=== PATIENT | male | born 1975 | race Two or more races ===

== ENCOUNTER 2023-07-25 11:16 | Outpatient (REF) | payer MEDICAID, OTHER, SELFPAY ==
--- NOTE | ~2023-07-25 | XR_ITS ---
EXAMINATION: XR HAND, RIGHT CLINICAL INFORMATION: Numbness and tingling; pain and cramping; tenosynovitis. COMPARISON: None available. TECHNIQUE: PA, lateral, and oblique views of the right hand. FINDINGS: The bones and soft tissues are normal. No fracture. Alignment is anatomic. Joint spaces are maintained. No erosions or soft tissue calcifications. XR/XR hand RT min 3V IMPRESSION: Normal right hand.
== END 2023-07-25 11:17 | disposition home or self-care (01) ==
LOC: HO.HHCX 11:16
PROVIDERS: Visit Provider Internal Medicine
DX: M65.9 Synovitis and tenosynovitis, unspecified (principal)
CPT/HCPCS: 73130

== ENCOUNTER 2023-09-21 10:16 | Outpatient (REF) | payer MEDICAID, OTHER, SELFPAY ==
[2023-09-21 12:15] LABS: HIV AB/AG Nonreactive (Nonreactive); HIV Num 1 0.04 S/CO (0.00-0.99); ~HepC Num1 0.24 S/CO (0.00-0.79); ~Hepatitis C Antibody Nonreactive (Nonreactive)
[2023-09-21 12:58] LABS: CT PCR NOT DETECTED (Not Detect.); NG PCR NOT DETECTED (Not Detect.)
[2023-09-21 14:10] LABS: Alanine Aminotransferase 53 U/L (0-40); Albumin Level 4.5 g/dL (3.5-5.0); Alkaline Phosphatase 68 U/L (39-117); Anion Gap 8 (12-20); Aspartate Amino Transferase 32 U/L (5-37); Bilirubin Total 1.1 mg/dL (0.0-1.0); Blood Urea Nitrogen 16 mg/dL (9-16); Calcium 9.7 mg/dL (8.4-10.2); Carbon Dioxide 30 mmol/L (22-29); Chloride 107 mmol/L (96-108); Cholesterol 271 mg/dL (<200); Estimated Glomerular Filt Rate > 60; Glucose Random 87 mg/dL (60-115); HDL Cholesterol 47 mg/dL (>40); LDL Cholesterol Calculated 187 mg/dL (<100); Potassium 4.7 mmol/L (3.3-5.1); Sodium 140 mmol/L (135-145); Triglycerides 187 mg/dL (<150)
[2023-09-22 13:38] LABS: RPR Rapid Plasma Reagin NON-REACTIVE (NON-REACTIVE)
== END 2023-09-21 10:17 | disposition home or self-care (01) ==
LOC: HO.HHCL 10:16
PROVIDERS: Visit Provider Nurse Practitioner Family
DX: Z00.00 Encounter for general adult medical examination without abnormal findings (principal); Z11.4 Encounter for screening for human immunodeficiency virus [HIV]; Z11.3 Encounter for screening for infections with a predominantly sexual mode of transmission
CPT/HCPCS: 0353U; 36415; 80053; 80061; 86592; 86803; 87389

== ENCOUNTER 2024-02-08 11:57 | Outpatient (REF) | payer MEDICAID, OTHER, SELFPAY ==
[2024-02-08 14:11] LABS: Alanine Aminotransferase 36 U/L (0-40); Albumin Level 4.5 g/dL (3.5-5.0); Alkaline Phosphatase 65 U/L (39-117); Anion Gap 11 (12-20); Aspartate Amino Transferase 22 U/L (5-37); Bilirubin Direct 0.2 mg/dL (0.0-0.5); Bilirubin Total 0.9 mg/dL (0.0-1.0); Blood Urea Nitrogen 15 mg/dL (9-16); Calcium 9.8 mg/dL (8.4-10.2); Carbon Dioxide 28 mmol/L (22-29); Chloride 105 mmol/L (96-108); Estimated Glomerular Filt Rate > 60; Glucose Random 85 mg/dL (60-115); Potassium 4.6 mmol/L (3.3-5.1); Sodium 139 mmol/L (135-145); Total Protein 7.9 g/dL (6.5-8.0)
== END 2024-02-08 11:58 | disposition home or self-care (01) ==
LOC: HO.HHCL 11:57
PROVIDERS: Visit Provider Nurse Practitioner Family
DX: I10 Essential (primary) hypertension (principal)
CPT/HCPCS: 36415; 80048; 80076

== ENCOUNTER 2024-11-05 10:17 | Outpatient (REF) | payer MEDICAID, OTHER, SELFPAY ==
--- OUTSIDE RECORDS SUMMARY | 2024-11-05 10:47 | XMS_ITS | Encounter Summary ---
Author Organization [employer] [facility] Address [address] [facility] [address] [place] [address] Care Team Providers Care Coach Mechanic Name Role Phone Vivian Castorena NP Primary Care Provider [phone] Reason for Visit * Reason Comments Med Change Request Encounter Details Date Type Department Care Team ([facility] st Contact Info) Description 09/21/2023 Refill [facility] [address] [place], [place] [phone] Vivian Castorena NP [address] [place], [place] [phone] Hypertension, unspecified type Social History Tobacco Use Types Packs/Day Years Used Date Smoking Tobacco: Never Passive Smoke Exposure: Never Smokeless Tobacco: Never Alcohol Use Standard Drinks/Week Comments Yes 1 (1 standard drink = 0.6 oz pur e alcohol) Depression Answer Date Recorded Patient Health Questionnaire-9 Score 0 09/21/2023 Patient Health Questionnaire-9 Score 0 09/21/2023 Last PHQ-9: Questionnaire Data Not on file 0 09/21/2023 Housing Stability Answer Date Recorded What is your housing situation today? I have giovany grey 09/14/[address] you li ve. Do you have problems with any of the following? None of the above 09/14/2023 Food Insecurity Answer Date Recorded Within the past 12 months, y ou worried that your food would run out before you got money to buy more: Never True 09/21/2023 Within the past 12 months,th e food you bought just didn't last and you didn't have enough money to get more: Never True Transportation Answer Date Recorded In the past 12 months, has l ack of transportation kept you from medical appts, meetings, work or from getting things needed for daily living? No 09/14/2023 Utilities Answer Date Recorded In the past 12 months, has t he electric, gas, oil or water company threatened to shut off services in your home? No 09/14/2023 Depression Answer Date Recorded Patient Health Questionnaire-2 Score 0 09/21/2023 Sex and Gender Information Value Date Recorded Sex Assigned at Male 02/02/2023 11:22 AM EDT Legal Sex Male 11:18 AM EDT Gender Identity Male 02/02/2023 11:22 AM EDT Sexual Orientation Straight 02/02/2023 11 :22 AM EDT Occupation Industry Job Start Date Job End Date construction Not on file Not on file Not on file documented as of this encounter Miscellaneous Notes * Telephone Encounter - Kyra Morales - 09/23/2023 8:13 AM EDT DME Rx generated for BPM kit and placed on PCP desk for signature. Once signed will fax to [facility] and scan into chart under media. documented in this encounter Plan of Treatment Not on file documented as of this encounter Visit Diagnoses Diagnosis Hypertension, unspecified type documented in this encounter Additional Health Concerns Assessment Noted Time PHQ-9 Depression Total Score: 0 09/21/19 9:07 AM EDT documented as of this encounter Care Teams Coach Mechanic Relationship Specialty Start Date End Date Vivian Castorena NP [address] [place] [address] PCP - General Family Medicine 09/21/23 documented as of this encounter
--- OUTSIDE RECORDS SUMMARY | 2024-11-05 10:47 | XMS_ITS | Clinical Summary ---
Author Organization [facility] Address [address] [place] [address] 7 [place] [address] Care Team Providers Care Water Proofer Name Role Phone Vivian Castorena SANTOS Primary Care Provider Allergies No known active allergies Medications Blood Pressure Monitor kitIndications :Hypertension, unspecified type Check blood pressure twice a wee. Dx hypertension 1 kit 09/21/19 24 Active lisinopril (Prinivil) 20 MG tabletIndicati ons:Hypertensi on, unspecified type Take 1 tablet (20 mg) by mouth Once per day. 90 tablet 3 10/27/19 25 2025 Active lisinopril (Prinivil) 20 MG tabletIndicati ons:Hypertensi on, unspecified type Take 1 tablet (20 mg) by mouth Once per day. 90 tablet 1 12/23/19 24 2024 Discontinued(R eorder (will not trigger notification to Pharmacy)) Active Problems Problem Noted Date Diagnosed Date Other hyperlipidemia 10/16/2023 Health care maintenance 09/21/2023 Assessment & Plan (09/24/2023 1:19 PM EDT): Routine Health Maintenance Optometry: [facility] Dental: established with dental home [facility] ASCVD risk: 47 y.o. male hypertension Lab Review: orders written for new lab studies as appropriate; see orders COVID vaccination status: utd Outstanding IZ: (PCV20 - 19-65 with immunocompromising condition, tobacco use, diabetes, or >65 y/o) Shingrix (50 and over, 2 dose series, 2-6 months apart) Tdap: one dose after 19 y/o, then Td or Tdap booster every 10 years. Routine Cancer Screening Colon CA: routine screening starting at 45-75 years old per ACS -Colonoscopy every 10 years -CT colonography or flex sig every 5 years -Stool DNA test/Cologuard every 3 years -FIT annually Lung CA: Age 50-80 with 20-year pack history send for low-dose CT per USPSTF - n/a (order AAA screening with abd ultrasound x 1 in men aged 65-75 y/o who have ever smoked) n/a PSA: shared decision making for routine screening starting at 50 y/o (40-45y/o w/ risk factors) n/a There is no immunization history on file for this patient. Hypertension 09/21/2023 Assessment & Plan (09/24/2023 1:21 PM EDT): Goal <140/<90 Reviewed lifestlye interventions, Bp home kit ordered Measure at home Rtc in 3 months sooner for readings >140/90 Labs as ordered below Constipation 09/21/2023 Assessment & Plan (09/24/2023 1:21 PM EDT): Chronic, trail miralax Medication Indications, side effects and duration of therapy reviewed, pt aware to call clinic for worsening symptoms or failure to resolve Acute pain of right knee 09/21/2023 Assessment & Plan (09/24/2023 1:21 PM EDT): Referral to physical therapy, Right hand pain 09/21/2023 Assessment & Plan (09/24/2023 1:22 PM EDT): Referral to ortho Tenosynovitis of finger and hand 07/25/2023 Assessment & Plan (07/25/2023 11:38 AM EST): Use diclofenac gel bid + Tylenol, wear protective gloves at work. Use warm compresses prn to affected area. Refer to OT Order Xrays hands Work restrictions letter given x 1mo or until seen by OT or PCP Nerve entrapment of lower limb, right 07/25/2023 Assessment & Plan (07/25/2023 11:40 AM EST): On right knee laterally, ro peroneal nerve compression Recommend to avoid kneeling and fu with PCP Encounters Date Type Department Care Team Description 10/26/2024 1:45 PM EDT Office Visit [facility] [address] [place] [phone] Vivian Castorena NP Hypertension, unspecified type (Primary Dx); Other hyperlipidemia 10/26/2024 Travel 10/24/[address] [phone] Clara Quiles MA Chart Prep 10/16/2024 Patient Outreach [facility] [address] [place] [address] Vivian Castorena NP Pre-visit Planning (SDOH unable to reach LVM ) 08/27/2024 Telephone [facility] [address] [place] [phone] Clara Quiles MA Chart Prep 08/24/2024 Patient Outreach [facility] [address] [place] [phone] Vivian Castorena NP Care Coordination (CH[facility] outreach for SDOH food needs-referral completed /) 08/24/2024 Patient Outreach [facility] [address] [place] [phone] Vivina Castorena NP Pre-visit Planning (SDOH Screening positive and Tobacco screening negative) from Last 3 Months Immunizations Name Administration Dates Next Due IPV 07/07/2024 Influenza, seasonal, injectable, preservative fr ee 07/03/2024 Pfizer Covid-19 Vaccine 12+ 07/03/2024 Social History Tobacco Use Types Packs/Day Years Used Date Smoking Tobacco: Never Passive Smoke Exposure: Never Smokeless Tobacco: Never Tobacco Cessation:Counseling Given: Not Answered Alcohol Use Standard Drinks/Week Comments Yes 1 (1 standard drink = 0.6 oz pur e alcohol) Depression Answer Date Recorded Patient Health Questionnaire-9 Score 0 10/26/2024 Patient Health Questionnaire-9 Score 0 10/26/2024 Last PHQ-9: Questionnaire Data Not on file 0 10/26/2024 Housing Stability Answer Date Recorded What is your housing situation today? I have giovany grey 09/14/[address] you li ve. Do you have problems with any of the following? None of the above 09/14/2023 Food Insecurity Answer Date Recorded Within the past 12 months, y ou worried that your food would run out before you got money to buy more: Sometimes True 2024 Within the past 12 months,th e food you bought just didn't last and you didn't have enough money to get more: Sometimes True 08/24/2024 Transportation Answer Date Recorded In the past [...] Date Recorded Patient Health Questionnaire-2 Score 0 10/26/2024 Internet Access Answer Date Recorded Internet Access Q1 Yes 08/24/2024 Internet Access Q2 Not on file 08/24/2024 Sex and Gender Information Value Date Recorded Sex Assigned at Male 02/02/2023 11:22 AM EDT Legal Sex Male 11:18 AM EDT Gender Identity Male 02/02/2023 11:22 AM EDT Sexual Orientation Straight 02/02/2023 11 :22 AM EDT Occupation Industry Job Start Date Job End Date construction Not on file Not on file Not on file Last Filed Vital Signs Vital Sign Reading Time Taken Comments Blood Pressure 156/105 10/26/2024 2:01 PM EDT Pulse 66 10/26/2024 2:01 PM EDT Temperature 36.2 ??C (97.2 ??F) 10/26/2024 2:01 PM ED T Respiratory Rate 20 10/26/2024 2:01 PM EDT Oxygen Saturation 98% 10/26/2024 2:01 PM EDT Inhaled Oxygen Concentration - - Weight 88.2 kg (194 lb 6.4 oz) 10/26/2024 2:01 P M EDT Height 167.6 cm (5' 6 ) 10/26/2024 2:01 PM EDT Body Mass Index 31.38 10/26/2024 2:01 PM EDT Plan of Treatment Health Maintenance Due Date Last Done Comments CT Colonography 1977 Colonoscopy 1977 FIT 1977 FOBT 1977 Sigmoidoscopy 1977 Family Planning (PISQ) 1992 DTaP/Tdap/Td Vaccines (1 - Tdap) 1996 Hepatitis B Vaccines (1 of 3 - 19+ 3-dose series) 1996 IPV Vaccines (2 of 3 - Adult catch-up series) 08/04/2024 07/07/2024 SDOH Screening 08/24/2025 08/24/2024 Alcohol/Substance Use Screening 10/26/2025 10/26/2024 Depression Screening 10/26/2025 10/26/2024, 10/26/2024 Tobacco Screening 10/26/2025 10/26/2024 Colorectal Cancer Screening 10/04/2026 FIT DNA/Cologuard 10/04/2026 10/05/2023 Zoster Vaccines (1 of 2) 10/07/2027 Lipid Panel 09/20/2028 09/21/2023 RSV Patients and Patients Aged 60 years or older (1 - 1-dose 75+ series) 2052 HIV Screening Completed 09/21/2023 Hepatitis C Screening Completed 09/21/2023 COVID-19 Vaccine Completed 07/03/2024 Influenza Vaccine Completed 07/03/2024 HIB Vaccines Aged Out No longer eligi ble based on patient's age to complete this topic HPV Vaccines Aged Out No longer eligi ble based on patient's age to complete this topic Hepatitis A Vaccines Aged Out No long er eligible based on patient's age to complete this topic Meningococcal Vaccine Aged Out No isabella dg eligible based on patient's age to complete this topic Pneumococcal Vaccine: Pediatrics (0 to 5 Years) and At-Risk Patients (6 to 49) Years) Aged Out No longer eligible b ased on patient's age to complete this topic RSV under 20 months Aged Out No longe r eligible based on patient's age to complete this topic Rotavirus Vaccines Aged Out No longer eligible based on patient's age to complete this topic Procedures Procedure Name Priority Date/Time Associated Diagnosis Comments LAB COLOGUARD?? COLON CANCER SCREEN Routine 10/05/2023 8:36 AM EDT Health care maintenance HEPATITIS C ANTIBODY Routine 09/21/2023 10:22 AM EDT Health care maintenance HIV 1/2 ANTIGEN/ANTIBODY, FOURTH GENERATION W/RFL Routine 09/21/2023 10:22 AM EDT Health care maintenance LIPID PANEL, STANDARD Routine 09/21/2023 10:22 AM EDT Health care maintenance from Last 3 Months or Most Recently Relevant to Health Maintenance Results * Cologuard?? colon cancer screening (10/05/2023 8:36 AM EDT) Cologuard Result Negative Negative 10/12/19 24 5:55 AM EDT [employer] (CLIA #:[id number]) Comment: NEGATIVE TEST RESULT. A negative Cologuard result indicates a low likelihood that a colorectal cancer (CRC) or advanced adenoma (adenomatous polyps with more advanced pre-malignant features) ??is present. The chance that a person with a negative Cologuard test has a colorectal cancer is less than 1 in 1500 (negative predictive value >99.9%) or has an ??advanced adenoma is less than ??5.3% (negative predictive value 94.7%). These data are based on a prospective cross-sectional study of 10,000 individuals at average risk for colorectal cancer who were screened with both Cologuard and colonoscopy. (Sada Moore et al, N Engl J Med 2014;370(14):1286- 1297) The normal value (reference range) for this assay is negative. COLOGUARD RE-SCREENING RECOMMENDATION: Periodic colorectal cancer screening is an important part of preventive healthcare for asymptomatic individuals at average risk for colorectal cancer. ??Following a negative Cologuard result, the [place] [employer] and U.S. Multi-Society Task Force screening guidelines recommend a Cologuard re-screening interval of 3 years. References: [place] [employer] Guideline for Colorectal Cancer Screening: https://www.cancer.org/cancer/gashg-goqukm-nsspxg/fwbbjiuoc-mhfrnkdgc-ghucbla/ac s-rec ommendations.html.; Augustus KWON, Adrian NORWOOD, Geoff WEI, Colorectal Cancer Screening: Recommendations for Physicians and Patients from the U.S. Multi-Society Task Force on Colorectal Cancer Screening , Am J Gastroenterology 2017; 112:5712-4208. TEST DESCRIPTION: Composite algorithmic analysis of stool DNA-biomarkers with hemoglobin immunoassay. ?? Quantitative values of individual biomarkers are not reportable and are not associated with individual biomarker result reference ranges. Cologuard is intended for colorectal cancer screening of adults of either sex, 45 years or older, who are at average-risk for colorectal cancer (CRC). Cologuard has been approved for use by the U.S. FDA. The performance of Cologuard was established in a cross sectional study of average-risk adults aged 50-84. Cologuard performance in patients ages 45 to 49 years was estimated by sub-group analysis of near-age groups. Colonoscopies performed for a positive result may find as the most clinically significant lesion: colorectal cancer [4.0%], advanced adenoma (including sessile serrated polyps greater than or equal to 1cm diameter) [20%] or non- advanced adenoma [31%]; or no colorectal neoplasia [45%]. These estimates are derived from a prospective cross-sectional screening study of 10,000 individuals at average risk for colorectal cancer who were screened with both Cologuard and colonoscopy. (Sada Norris al, N Engl J Med 2014;370(14):6049-9403.) Cologuard may produce a false negative or false positive result (no colorectal cancer or precancerous polyp present at colonoscopy follow up). A negative Cologuard test result does not guarantee the absence of CRC or advanced adenoma (pre-cancer). The current Cologuard screening interval is every 3 years. ([place] [employer] and U.S. Multi-Society Task Force). Cologuard performance data in a 10,000 patient pivotal study using colonoscopy as the reference method can be accessed at the following location: www.vLex/results. Additional description of the Cologuard test process, warnings and precautions can be found at www.[employer].com. Stool specimen (specimen) 10/05/2023 8:36 AM EDT 2023 9:34 AM EDT Vivian Castorena NP LAB MOLECULAR DIAGNOSTICS ORDERA BLES Final Result [employer] (CLIA #:[id number]) [address] [place] [address], * Hepatitis C Ab (09/21/2023 10:22 AM EDT) Pathologist [facility] Hepatitis C Antibody Nonreactive Nonreactive [facility] Comment:Antibodies to HCV no t detected; does not exclude early acuteHCV infection. Blood Venous blood specimen / Unknown 09/21/2023 10:22 AM EDT 09/21/2023 11:33 AM EDT us Vivian Castorena NP LAB BLOOD ORDERABLES Final Resul t Performing Organization Address [facility]/ZIP Co de Phone Number [facility] [address] [place] [phone] * HIV-1/2 Antigen and Antibodies, Fourth Generation, with Reflexes (09/21/2023 10:22 AM EDT) [facility] HIV AB/AG Nonreactive Nonreactive [facility] Comment:HIV-1 p24 Ag and/or HIV-1/HIV-2 Ab not detected.A test result that is nonreactive does not exclude thepossibility of exposure to or infection with HIV-1 and/orHIV-2. Nonreactive results in this assay for individualswith prior exposure to HIV-1 and/or HIV-2 may be due toantigen and antibody levels that are below the limit ofdetection of this assay.The [employer]uv[employer]surf HIV Ag/Ab Combo assay result andsupplemental assay results should be interpreted inconjunction with the patient's clinical presentation,history and other laboratory results. If the results areinconsistent with clinical evidence, additional testing issuggested to confirm the result. Blood Venous blood specimen / Unknown 09/21/2023 10:22 AM EDT 09/21/2023 11:33 AM EDT us Vivian Castorena NP LAB BLOOD ORDERABLES Final Resul t Performing Organization Address City/[facility]/ZIP Co de Phone Number [facility] [address] [place] [phone] * (ABNORMAL) Lipid Panel, Standard (09/21/2023 10:22 AM EDT) Triglycerides 187(H) <150 mg/dL [facility] Comment:Desirable Triglyceri de: less than 150 mg/dLBorderline High Triglyceride 150-199 mg/dLHigh Triglyceride: 200-499 mg/dLVery High Triglyceride: greater than or equal to 5OO mg/dL Cholesterol 271(H) <200 mg/dL [facility] Comment:Desirable Cholestero l: less than 200 mg/dLBorderline High Cholesterol: 200-239 mg/dLHigh Cholesterol: greater than 239 mg/dL LDL Cholesterol Calculated 187(H) <100 mg/dL [facility] Comment:Desirable LDL: less than 100 mg/dLNear Optimal/Above Optimal LDL: 110- 129 mg/dLBorderline High LDL: 130-159 mg/dLHigh LDL: 160-189 mg/dLVery High LDL: greater than or equal to 190 mg/dL HDL Cholesterol 47 >40 mg/dL [facility] Comment:Desirable HDL: great er than 40 mg/dL Note: This HDL assay may give artificially low results in patients with liver disease. Blood Venous blood specimen / Unknown 09/21/2023 10:22 AM EDT 09/21/2023 1:27 PM EDT us Vivian Castorena [facility] BLOOD ORDERABLES Final Resul t [facility] [address] [place] [phone] from Last 3 Months or Most Recently Relevant to Health Maintenance Insurance [employer] Care Teams Water Proofer Relationship Specialty Start Date End Date Vivian Castorena NP [address] [place] [phone] PCP - General Family Medicine 09/21/23
[2024-11-05 12:02] LABS: Estimated Average Glucose 108 mg/dL; Hemoglobin A1C 140.8184 umol/L; Hemoglobin A1c % 5.4 % (<6.0); Total Hemoglobin (HGBA1C) 3958.9651 umol/L
[2024-11-05 12:14] LABS: Alanine Aminotransferase 47 U/L (0-40); Albumin Level 4.5 g/dL (3.5-5.0); Anion Gap 12 (12-20); Aspartate Amino Transferase 30 U/L (5-37); Bilirubin Total 1.6 mg/dL (0.0-1.0); Blood Urea Nitrogen 14 mg/dL (9-16); Calcium 9.8 mg/dL (8.4-10.2); Carbon Dioxide 27 mmol/L (22-29); Chloride 104 mmol/L (96-108); Cholesterol 289 mg/dL (<200); Estimated Glomerular Filt Rate > 60; Glucose Random 92 mg/dL (60-115); HDL Cholesterol 40 mg/dL (>40); LDL Cholesterol Calculated 212 mg/dL (<100); Potassium 4.4 mmol/L (3.3-5.1); Sodium 139 mmol/L (135-145); Total Protein 7.6 g/dL (6.5-8.0); Triglycerides 185 mg/dL (<150)
[2024-11-05 12:16] LABS: Alkaline Phosphatase 67 U/L (39-117)
== END 2024-11-05 10:18 | disposition home or self-care (01) ==
LOC: HO.HHCL 10:17
PROVIDERS: Visit Provider Nurse Practitioner Family
DX: E78.49 Other hyperlipidemia (principal); I10 Essential (primary) hypertension
CPT/HCPCS: 36415; 80053; 80061; 83036